=== PATIENT | male | born 1955 | race Caucasian/White ===

== ENCOUNTER → 2017-04-01 | Outpatient (CLI) | payer OTHER ==
[~2017-04-01] MED LIST: HIV MEDICATION; LISI-313 PO
--- NOTE | 2017-04-01 15:11 | RADRPT ---
PROCEDURE: Left knee radiographs. CLINICAL INDICATION: Left knee pain. TECHNIQUE: Three views. Weight bearing. Frontal, lateral, and patellar view. COMPARISON: No prior studies are available for comparison. FINDINGS: There is no fracture or dislocation. The soft tissues are normal. There are degenerative changes with osteophytes arising from all 3 joint compartment margins. There is no joint space narrowing or deformity. There is no lytic or blastic lesion. There is no radiopaque foreign body. IMPRESSION: 1. Mild degenerative changes. 2. Otherwise normal images of the left knee. RPTAT: QQ .Uli Saenz MD, MD Date Time Electronically viewed and signed by .Uli Saenz MD, on 04/01/2017 15:10 .R/
--- NOTE | 2017-04-02 03:41 | HKNOTE ---
DATE OF SERVICE: 04/01/2017 CHIEF COMPLAINT: Left knee pain. HISTORY OF PRESENT ILLNESS: This is a 61-year-old male who is complaining of left knee pain for the last month. The pain is on the inside of the left knee. He denies any locking, catching. He denies any instability. He has been using an [id number] knee brace. He does not use any assistive devices. He takes [id number]-mpp-hvrotlw ibuprofen for pain control. He denies any history of trauma. He has no other complaints. He denies any hip, groin, or back pain. PHYSICAL EXAMINATION: GAIT: Nonantalgic gait. No use of assistive devices. LEFT HIP EXAM: 0-90 degrees range of motion, 50 degrees external rotation, 20 degrees of internal rotation. Negative Stinchfield. Negative straight leg raise. LEFT KNEE EXAM: Neutral alignment. Tender over the medial joint line. Nontender over the lateral joint line. 0-130 degrees range of motion. Stable to varus and valgus stress. Negative Gwen. Negative anterior drawer. Negative posterior drawer. Negative Annie's. 5/5 strength of quadriceps, tibialis anterior, gastroc soleus. Palpable pulses. IMAGING: X-ray of left knee. Three views of the left knee demonstrate medial joint space narrowing. There are no fractures or dislocations. IMPRESSION: A 61-year-old male with left knee strain. PLAN: We will request authorization for MRI of the left knee. He will return in 2 weeks for re-evaluation. Dictated By: Kurt Emery MD /lina/ruth /Document#: [id number]
== END | disposition home or self-care (01) ==
LOC: HKI 13:43
PROVIDERS: ATTEND Orthopaedic Surgery Adult Reconstructive Orthopaedic Surgery
DX: M25.562 Pain in left knee (principal); S83.92XA Sprain of unspecified site of left knee, initial encounter
CPT/HCPCS: G0463

== ENCOUNTER → 2017-06-03 | Outpatient (CLI) | payer OTHER ==
--- NOTE | 2017-06-03 14:42 | HKNOTE ---
DATE OF SERVICE: 06/03/2017 CHIEF COMPLAINT: Left knee pain. HISTORY OF PRESENT ILLNESS: This is a 61-year-old male complaining of left knee pain. He has insta bility of his knee. He has popping and catching of his left knee. He recently had an MRI and is he re to go over the results. GAIT: Nonantalgic gait, reciprocal gait pattern. PHYSICAL EXAMINATION: LEFT KNEE EXAM: Neutral alignment. Tender over the medial joint line. Nontender over the lateral joint line, 0 to 120 degree range of motion. Stable to varus valgus stress negative Gwen, negati ve anterior drawer, negative posterior drawer. Positive Chantel. Motor strength 5/5, hamstrings, quadriceps, tibialis anterior, gastrocsoleus. MRI left knee. There is a flap tear of the posterior horn of the medial meniscus. The lateral meni scus is intact. There is a partial tear of the posterior cruciate ligament tibial attachment. IMPRESSION: A 61-year-old male with left knee posterior horn medial meniscus tear. PLAN: We will request authorization for physical therapy. We will also request authorization for a brace of the left knee. He will follow up with me as needed. Dictated By: EMILY GONZALEZ/MIREYA Conf#: [id number] DID#: [id number]
== END | disposition home or self-care (01) ==
LOC: HKI 13:51
PROVIDERS: ATTEND Orthopaedic Surgery Adult Reconstructive Orthopaedic Surgery
DX: M23.222 Derangement of posterior horn of medial meniscus due to old tear or injury, left knee (principal)
CPT/HCPCS: G0463

== ENCOUNTER 2018-06-03 21:51 | Emergency (ER) | END 2018-06-03 23:40 | disposition home or self-care (01) ==